=== PATIENT | female | born 2000 | race Two or more races ===

== ENCOUNTER 2024-05-25 13:00 | Inpatient (IN) | payer OTHER ==
[~2024-05-25] VITALS: Ht 157.5 cm; Wt 80.3 kg
[2024-06-05] MEDS ORDERED: RINGERS SOLUTION,LACTATED 1,000 ML IV SCH (09:00)
[2024-06-05 09:39] LABS: PH,URINE 6.5 (5.0-8.0); URINE APPEARANCE Clear; URINE BILIRRUBIN Negative (NEGATIVE); URINE BLOOD Trace; URINE COLOR Yellow; URINE GLUCOSE Negative (NEGATIVE); URINE LEUKOCYTE Trace; URINE NITRATE Negative; URINE PROTEIN Negative (NEGATIVE); URINE UROBILINOGEN 0.2 E.U./dl
[2024-06-05 09:44] LABS: URINE RBC 2.9 uL (0.0-20.8); URINE WBC 86.8 uL (0.0-23.2)
[2024-06-05 09:59] LABS: HEMATOCRIT 28.2 % (36.0-45.00); MEAN CELL VOLUME 65.3 fL (80.00-100.00); MEAN CORPUSCULAR HEMOGLOBIN 20.9 pg (27.00-32.0); PLATELET COUNT 204 K/uL (150-450); RED BLOOD COUNT 4.32 M/uL (4.00-6.00); RED CELL DISTRIBUTION WIDTH 24.3 % (11.5-14.5)
[2024-06-05 10:12] LABS: INR < 0.93; PARTIAL THROMBOPLASTIN TIME 27.3 SECONDS (22.0-34.0); PROTHROMBIN TIME 9.6 SECONDS (9.0-11.5)
[2024-06-05] MEDS ORDERED: MEPERIDINE HCL/PF 50 MG/ML VIAL IV ONE (16:15)
[2024-06-05] MEDS ORDERED: PROMETHAZINE HCL 25 MG/ML AMPUL IV ONE (16:15)
[2024-06-05] MEDS ORDERED: OXYTOCIN 20 UNITS/500ML RL PIGGYBAG IV SCH (17:45)
[2024-06-05] MEDS ORDERED: CHLORHEXIDINE GLUCONATE 120 ML BOTTLE TOP ONE (23:45)
[2024-06-06] MEDS ORDERED: KETOROLAC TROMETHAMINE 60 MG VIAL IM STA (00:33)
[2024-06-06] MEDS ORDERED: PROMETHAZINE HCL 25 MG/ML AMPUL IM PRN (00:45)
[2024-06-06] MEDS ORDERED: MEPERIDINE HCL/PF 50 MG/ML VIAL IM PRN (00:45)
[2024-06-06] MEDS ORDERED: RINGERS SOLUTION,LACTATED 1,000 ML IV SCH (00:45)
[2024-06-06] MEDS ORDERED: OXYTOCIN 1,000 ML IV SCH (00:45)
[2024-06-06] MEDS ORDERED: CEFOXITIN SODIUM 2,000 MG VIAL IV SCH (01:00)
[2024-06-06 01:16] LABS: ABG PH 7.285 (7.35-7.45); ABG pCO2 48.2 mmHg (35-45); BASE EXCESS -4.6 mmol/l; BICARBONATE 22.4 mmol/l (23-25); Tco2 23.9 mmol/l
[2024-06-06] MEDS ORDERED: CEFOXITIN SODIUM 2,000 MG VIAL IV ONE (01:45)
[2024-06-06] MEDS ORDERED: ERYTHROMYCIN BASE 1 GM TUBE OP ONE (01:45)
[2024-06-06] MEDS ORDERED: OXYTOCIN 10 UNITS/ML VIAL IV ONE (01:45)
[2024-06-06] MEDS ORDERED: METHYLERGONOVINE MALEATE 0.2 MG/ML AMPUL IM ONE (01:45)
[2024-06-06 04:52] LABS: HEMATOCRIT 27.4 % (36.0-45.00); MEAN CELL VOLUME 65.3 fL (80.00-100.00); MEAN CORPUSCULAR HEMOGLOBIN 20.7 pg (27.00-32.0); MEAN CORPUSCULAR HGB CONC 31.8 g/dl (32.0-36.0); PLATELET COUNT 221 K/uL (150-450); RED CELL DISTRIBUTION WIDTH 24.8 % (11.5-14.5)
[2024-06-06 04:53] LABS: HEMOGLOBIN 8.7 g/dL (12.0-15.00)
[2024-06-06 06:21] LABS: ABG PO2 20.7 mmHg (80-100)
[2024-06-06 06:22] LABS: o2 21 %
[2024-06-06] MEDS ORDERED: OxyCODONE HCL/APAP UD (PERCOCET) PO PRN (09:00)
[2024-06-07] MEDS ORDERED: PRENATAL + DHA1 EAC1 (10:46)
[2024-06-08] MEDS ORDERED: IBUPROFEN800 MG PO (07:05)
== END 2024-06-08 14:19 | disposition home or self-care (01) | DRG 788 ==
LOC: LDR 06-05 08:36 → OB/GYN 06-06 01:58 → LDR 06-09 13:15
PROVIDERS: Obstetrics & Gynecology; ADMIT Specialist; ATTEND Specialist
PROC: 10D00Z1 Extraction of Products of Conception, Low, Open Approach (ICD-10-PCS; principal; 2024-06-05)
PROC: 4A1HXCZ Monitoring of Products of Conception, Cardiac Rate, External Approach (ICD-10-PCS; 2024-06-05)
DX: O33.8 Maternal care for disproportion of other origin (principal); Z3A.39 39 weeks gestation of pregnancy; Z37.0 Single live birth; Z20.822 Contact with and (suspected) exposure to COVID-19